=== PATIENT | female | born 1975 | race Caucasian/White ===

== ENCOUNTER 2018-06-30 07:04 | Emergency (ER) | payer OTHER ==
[~2018-06-30] VITALS: Ht 175.3 cm; Wt 122.7 kg
[~2018-06-30 07:04] MED LIST: CEFD300C37 PO; CIPR500T87 PO; ERGO500017 PO; LEVO500T47 PO; ONDA4TAB7 PO; OXYC-302 PO; OXYC-432 PO; PROM25TA10 PO; SERT25TA PO
[2018-06-30 07:13] VITALS: BP 127/88
[2018-06-30] MEDS ORDERED: PROPARACAINE OPHTH 0.5%, 15ML EACHEYE ONE (08:00)
[2018-06-30] MEDS ORDERED: FLUORESCEIN OPHTHALMIC 1 MG STRIP EACHEYE ONE (08:00)
[2018-06-30] MEDS ORDERED: FLUORESCEIN OPHTHALMIC 1 MG STRIP ONE (08:09)
[2018-06-30] MEDS ORDERED: PROPARACAINE OPHTH 0.5%, 15ML ONE (08:09)
[2018-06-30] MEDS ORDERED: metformin PO (08:18)
[2018-06-30] MEDS ORDERED: [UNRECOGNIZED DRUG - REMARK] (08:18)
[2018-06-30] MEDS ORDERED: cholesterol med (08:18)
--- NOTE | 2018-06-30 09:00 | NUR ---
1000CC EYE IRRIGATION COMPLETE. PT STATES IMPROVED PAIN POST EYE IRRIGATION AND PROPARACAINE.
== END 2018-06-30 09:49 | disposition home or self-care (01) ==
LOC: ED 09:42
DX: H10.211 Acute toxic conjunctivitis, right eye (principal); E11.9 Type 2 diabetes mellitus without complications
CPT/HCPCS: 99283